=== PATIENT | female | born 1985 | race Caucasian/White ===

== ENCOUNTER 2019-06-20 13:57 | Emergency (ER) | payer OTHER ==
[~2019-06-20] VITALS: Ht 172.7 cm; Wt 77.1 kg
[~2019-06-20 13:57] MED LIST: ALBU90OI INH; ALBU90OI61 INH; ALLERGY MED; AMOX500 PO; AZIT250 PO; CRUTCH2 USE; DOC250 PO; ESCI20 PO; HYDACE5 PO; HYDCOR1TC TOP; HYDGUAL120 PO; MEDR150I IM; METO5A PO; MICO200S PV; MULVITA PO; MULVITMINE; NAPR500 PO; NITR100CA PO; Norco 5-325 Ta1 EACH PO; ONDA4 PO; OXYACE5T PO; PHENA200 PO; PRED10 PO; PREN-16 PO; PROM25 PO; RANI150 PO; RXALBOI INH; RXPHEN200 PO; SULTRIDS PO; TRAM50 PO; ZYRTEC; Zofran Odt4 MG SL; Zofran Odt8 MG SL
[2019-06-20] MEDS ORDERED: Amoxicillin500 MG PO (14:11)
== END 2019-06-20 14:33 | disposition home or self-care (01) ==
LOC: ER 13:57
DX: J02.9 Acute pharyngitis, unspecified (principal)
CPT/HCPCS: 99282

== ENCOUNTER 2020-01-07 21:46 | Emergency (ER) | payer OTHER ==
[~2020-01-07] VITALS: Ht 172.7 cm; Wt 72.6 kg
[~2020-01-07 21:46] MED LIST changes: +Amoxicillin500 MG PO; +BENZ100A PO; +Pseudoephedrine30 MG PO
[2020-01-07] MEDS ORDERED: Veetids 500500 MG PO (22:42)
== END 2020-01-07 22:53 | disposition home or self-care (01) ==
LOC: ER 21:46
DX: K04.7 Periapical abscess without sinus (principal)
CPT/HCPCS: 96372; 99282-25; J1885